=== PATIENT | male | born 1995 | race African-American/Black ===

== ENCOUNTER 2020-10-31 00:08 | Emergency (ER) | payer OTHER ==
[2020-10-31 00:16] VITALS: BP 144/95; PULSE 90; TEMP 98.2; BMI 25.0
[2020-10-31] MEDS ORDERED: SULFAMETHOXAZOLE/TRIMETHOPRIM 800MG/160MG D.S. TABLET PO ONE (00:24)
[2020-10-31] MEDS ORDERED: SULFAMETHOXAZOLE/TRIMETHOPRIM 800MG/160MG D.S. TABLET ONE (00:27)
== END 2020-10-31 00:33 | disposition home or self-care (01) ==
LOC: FER 00:08
DX: H02.9 Unspecified disorder of eyelid (principal)
CPT/HCPCS: 99283-25